=== PATIENT | male | born 1950 | race Caucasian/White ===

== ENCOUNTER → 2022-01-25 | Outpatient (CLI) | payer MEDICARE ==
--- NOTE | 2022-01-25 08:26 | CT ---
EXAMINATION TYPE: CT chest w con CT DLP: 511 mGycm, Automated exposure control for dose reduction was used. DATE OF EXAM: 01/25/2022 8:10 AM COMPARISON: Chest radiograph 01/18/2022. CLINICAL INDICATION:Male, 71 years old with history of R06.00 Dyspnea; PHH, dyspnea, history of renal CA with Lt nephrectomy TECHNIQUE: Multiple axial images were obtained through the chest following the administration of 70 c c of Isovue 300. Coronal and sagittal reformats reviewed. FINDINGS: LUNGS/ PLEURA: No focal consolidation, pneumothorax, or pleural effusion. No concerning pulmonary nod ules or masses. No significant emphysematous changes. AIRWAY: Patent and unremarkable.. HEART: Size within normal limits. No pericardial effusion. Coronary artery calcifications. MEDIASTINUM: No gross evidence of adenopathy. VASCULATURE: No aortic aneurysm. Atherosclerotic calcification of the aorta. MUSCULOSKELETAL: No acute osseous abnormalities. No aggressive osseous lesions. Multilevel degenerati ve changes of the visualized spine. SOFT TISSUES/LYMPH NODES: Unremarkable. LOWER NECK: No significant findings. UPPER ABDOMEN: Diffuse low-attenuation to the liver parenchyma. IMPRESSION: 1. No acute thoracic process or evidence of metastatic disease. 2. Hepatic steatosis.
== END | disposition home or self-care (01) ==
LOC: RADCTMAIN 07:07
PROVIDERS: ATTEND Internal Medicine
DX: R06.00 Dyspnea, unspecified (principal)
CPT/HCPCS: 82565; 84520; 71260; 36415; Q9967

== ENCOUNTER → 2023-03-22 | Outpatient (CLI) | payer MEDICARE ==
--- NOTE | 2023-03-22 09:38 | US ---
EXAMINATION TYPE: US renals and bladder DATE OF EXAM: 03/22/2023 COMPARISON: NONE CLINICAL INDICATION: Male, 73 years old with history of Z90.5 single kidney; Left kidney removed, his tory of renal CA EXAM MEASUREMENTS: Right Kidney: 13.9 x 7.0 x 6.5 cm Right Kidney: 2.1 x 1.8 x 2.1cm cyst superior pole. No hydronephrosis. Left Kidney: surgically absent Bladder: wnl Bilateral Jets seen: right jet seen IMPRESSION: 1. Left kidney surgically absent. 2. A benign 2.1 cm cyst at the upper pole of the right kidney. 3. No hydronephrosis.
== END | disposition home or self-care (01) ==
LOC: RADUSWWP 07:33
PROVIDERS: ATTEND Internal Medicine
DX: N28.1 Cyst of kidney, acquired (principal); Z85.528 Personal history of other malignant neoplasm of kidney; Z90.5 Acquired absence of kidney
CPT/HCPCS: 76770